=== PATIENT | male | born 1950 | race Caucasian/White ===

== ENCOUNTER → 2021-11-15 13:07 | Outpatient (CLI) | payer MEDICARE, SELFPAY ==
--- NOTE | 2021-11-15 13:07 | CA_ITS ---
APPROVED REPORT EXAM: Comprehensive 2D, Doppler, and color-flow Echocardiogram Dough Cutting Machine Operator: PELON Karimi, RVS Ht: 6 ft 4 in Wt: 175lbs BSA: 2.09 BP: 160/92 mmHg Indications: Aortic stenosis with aortic insufficiency, HTN, dizziness, hypothyroidism Echo Enhancing Agent Comments: Low parasternal windows 2D Dimensions IVSd 1.35 cm LVEF (Visual) 62.40 % PWd 1.25 cm LA Volume 43.50 mL LVDd 4.65 cm LA Volume Index [id number] mL/m2 (M/F) 16-34 LVDs 2.87 cm Aortic Root 4.01 cm Left Atrium 6.17 cm LVOT 2.02 cm (M/F) 1.5-2.5 Ascending Aorta 3.88 cm M-Mode Dimensions Ao Diam 5.36 cm (2.0-3.7) TAPSE 1.70 (<1.7) LV Diastology E Decel Time 240.00 (160-240 msec) E/A Ratio 0.65 MED E' 8.40 (< 7 cm/sec) MED A' 7.30 cm/s E'/MED E' Ratio 8.43 (>14) LAT E' 8.90 (<10 cm/sec) LAT A' 11.30 cm/s E/LAT E' Ratio 7.96 (>14) Aortic Valve LVOT Max 104.00 (70-110 cm/s) LVOT VTI 26.16 cm AoV Peak Fahad. 368.00 (50-130 cm/s) AI PHT 574.00 ms AO Peak GR. 54.10 mmHg AO Mean GR. 35.50 (<5 mmHg) AO VTI 90.34 (18-25 cm) CHRIS (VTI) 0.93 (2.5-4.5 cm2) Mitral Valve MV A Velocity 109.00 (40-130 cm/s) E/A Ratio 0.65 MV Decel. Time 240.00 (160-240 ms) MV Mean Gr. 1.90 (<2mmHg) MV PHT 73.00 ms Pulmonary Valve PV Peak Velocity 94.00 (50-150 cm/s) Tricuspid Valve TR P. Velocity 190.00 cm/s RAP Estimate 10.00 mmHg RVSP 24.40 mmHg Left Ventricle Left atrium is mildly enlarged, left ventricle normal size mild concentric left ventricular hypertrophy, estimated ejection fraction 55% with no regional wall motion abnormality, grade 1 diastolic dysfunction seen without tissue Doppler evidence of raise left atrial pressure. Right Ventricle Right atrium and right ventricle are normal size and contractility. Aortic Valve Aortic valve leaflets are not well visualized, is thickened and calcified with severe restriction in the leaflet mobility is likely a bicuspid aortic valve, the mean gradient across aortic valve is 37 mmHg, valve area is 0.9 cm represents severe aortic stenosis, there is mild aortic insufficiency. Mitral Valve Mitral valve has mitral calcification, there is no mitral stenosis, there is mild mitral regurgitation. Tricuspid Valve Tricuspid valve grossly normal, there is mild tricuspid regurgitation, tricuspid regurgitation jet velocity is inadequate for calculation of the right ventricular systolic pressure. Pulmonic Valve Pulmonic valve is poorly visualized. Great Vessels Aortic root is enlarged measuring 3.9 cm. Inferior vena cava is poorly visualized. Pericardium No significant pericardial effusion noted. Conclusion 1. Mildly enlarged atrium, normal left ventricular size mild concentric left ventricle hypertrophy, estimated ejection fraction 55% with no regional wall motion abnormality, grade 1 diastolic dysfunction seen without tissue Doppler evidence of reduced left atrial pressure. 2. Thickened and calcified likely bicuspid aortic valve with severe aortic stenosis, there is mild aortic insufficiency. 3. Mild mitral and tricuspid regurgitation. 4. No significant pericardial effusion. 5. Inferior vena cava is poorly visualized. Electronically signed by : Anirudh Mccann MD 11/16/2021 14:40:24
--- NOTE | 2021-11-15 13:07 | CA_ITS ---
FINAL REPORT CLINICAL HISTORY: dizziness, Aortic stenosis, HTN FINDINGS: An ultrasound of the carotid arteries was performed. Duplex Doppler evaluation with spectral analysis was performed. The peak systolic velocity of the right common carotid artery is 66 cm/s. The peak systolic velocity of the right internal carotid artery is 90 cm/s and end diastolic velocity 33 cm/s. A [id number] amount of plaque is present. The right external carotid artery is patent. The right vertebral artery is patent with antegrade flow. The peak systolic velocity of the left common carotid artery is 67 cm/s. The peak systolic velocity of the left internal carotid artery is 87 cm/s and end diastolic velocity 31 cm/s. A sjqj-la-[id number] amount of plaque is present. The left external carotid artery is patent. The left vertebral artery is patent with antegrade flow. IMPRESSION: Less than 50% bilateral carotid stenoses. Bilateral patent vertebral arteries with antegrade flow. Reviewed, Interpreted and Dictated by Duane Duran MD Transcribed by Abdon Parker Authenticated and [facility]
== END ==
PROVIDERS: PCP Nurse Practitioner; Visit Provider Nurse Practitioner
DX: I35.0 Nonrheumatic aortic (valve) stenosis (principal); R42 Dizziness and giddiness
CPT/HCPCS: 93306; 93880

== ENCOUNTER → 2022-02-06 14:20 | Outpatient (CLI) | payer MEDICARE, SELFPAY ==
[2022-02-06 19:47] LABS: Anion Gap 15.5 mEq/L (5-15); Blood Urea Nitrogen 16 mg/dl (9-20); Calcium 9.4 mg/dl (8.4-10.2); Carbon Dioxide 27 mmol/L (22.0-30.0); Chloride 100 mmol/L (98-107); Estimated Glomerular Filt Rate 96 ml/min (>60); GFR (African American) 116 ML/MIN (>60); Glucose 87 mg/dl (74-100); Potassium 4.5 mmoL/L (3.5-5.1); Sodium 138 mmol/L (136-145)
[2022-02-06 20:03] LABS: Free T4 (Free Thyroxine) 1.06 ng/dl (0.78-2.19)
[2022-02-06 20:16] LABS: Thyroid Stimulating Hormone 4.44 uIU/mL (0.465-4.68)
== END ==
PROVIDERS: PCP Nurse Practitioner; Visit Provider Nurse Practitioner
DX: E03.9 Hypothyroidism, unspecified (principal); I10 Essential (primary) hypertension
CPT/HCPCS: 80048; 84439; 84443

== ENCOUNTER 2022-05-18 09:00 | Emergency (ER) | payer MEDICARE, SELFPAY ==
[2022-05-18] VITALS (8 sets, daily range): BP systolic 117–141; BP diastolic 60–86; PULSE 70–80; RESP 14–18; TEMP 36.6–36.8; O2SAT 94–98; BMI 21.2
--- NOTE | 2022-05-18 09:15 | CT_ITS ---
PROCEDURE INFORMATION: Exam: CTA Head With Contrast, Arteriography Exam date and time: 05/18/2022 10:13 AM Age: 71 years old Clinical indication: Other: Bilateral neck pain and midline with any motion; Additional info: Spontaneous bilateral neck pain and midline TECHNIQUE: Imaging protocol: Computed tomographic angiography of the head with contrast. Exam focused on the arteries. 3D rendering (Not supervised by radiologist): MIP and/or 3D reconstructed images were created by the technologist. Radiation optimization: All CT scans at this facility use at least one of these dose optimization techniques: automated exposure control; mA and/or kV adjustment per patient size (includes targeted exams where dose is matched to clinical indication); or iterative reconstruction. Contrast material: ISOVUE 370; Contrast volume: 100 ml; Contrast route: INTRAVENOUS (IV); COMPARISON: CT HEAD/BRAIN WO CON 05/18/2022 10:07 AM FINDINGS: Limitations: Timing of the study is late with heavy venous filling confusing the identification of arterial structures. Repeat study with earlier arterial phase timing may be helpful in working out this anatomy. MRI could also be considered to determine if there is an infarct. ANTERIOR CIRCULATION: Right internal carotid artery: Intracranial segment is patent with no significant stenosis. No aneurysm. Right middle cerebral artery: No occlusion or significant stenosis. No aneurysm. Right anterior cerebral artery: No occlusion or significant stenosis. No aneurysm. Left internal carotid artery: Intracranial segment is patent with no significant stenosis. No aneurysm. Left middle cerebral artery: No occlusion or significant stenosis. No aneurysm. Left anterior cerebral artery: No occlusion or significant stenosis. No aneurysm. POSTERIOR CIRCULATION: Right vertebral artery: No occlusion or significant stenosis. No aneurysm. Left vertebral artery: No occlusion or significant stenosis. No aneurysm. Basilar artery: No occlusion or significant stenosis. No aneurysm. Right posterior cerebral artery: There is origin of the right posterior cerebral artery. No P1 segment is identified. Left posterior cerebral artery: There is origin of the left posterior cerebral artery. No P1 segment is detected. Brain: There is hypodensity of the central M2 branches of the right middle cerebral artery distribution which appears to be related to narrowing of the primary M2 branch visualized on coronal image 48 sending anterior and posterior branches that are well seen but difficulty defining the origin of the central branches moving superiorly. There is no OTHER evidence of intracranial large vessel stenosis or occlusion. Cerebral ventricles: No ventriculomegaly. Bones/joints: Unremarkable. No acute fracture. Soft tissues: Unremarkable. IMPRESSION: 1. Timing of the study is late with heavy venous filling confusing the identification of arterial structures. Repeat study with earlier arterial phase timing may be helpful in working out this anatomy. MRI could also be considered to determine if there is an infarct. 2. There is origin of the right posterior cerebral artery. No P1 segment is identified. 3. There is origin of the left posterior cerebral artery. No P1 segment is detected. 4. There is hypodensity of the central M2 branches of the right middle cerebral artery distribution which appears to be related to narrowing of the primary M2 branch visualized on coronal image 48 sending anterior and posterior branches that are well seen but difficulty defining the origin of the central branches gabriela
--- NOTE | 2022-05-18 09:15 | CT_ITS ---
PROCEDURE INFORMATION: Exam: CT Cervical Spine Without Contrast Exam date and time: 05/18/2022 10:10 AM Age: 71 years old Clinical indication: Neck pain; Additional info: Spontaneous bilateral neck pain and midline TECHNIQUE: Imaging protocol: Computed tomography of the cervical spine without contrast. Radiation optimization: All CT scans at this facility use at least one of these dose optimization techniques: automated exposure control; mA and/or kV adjustment per patient size (includes targeted exams where dose is matched to clinical indication); or iterative reconstruction. COMPARISON: CT HEAD/BRAIN WO CON 05/18/2022 10:07 AM FINDINGS: Bones/joints: The spine demonstrates moderate degenerative changes at multiple levels. Facet arthropathy and foraminal compromise are more severe on the left side. There is no evidence of fracture. Lungs: Confluent centrilobular emphysematous changes are present in the lungs. Thyroid: The thyroid appears normal. Vasculature: The vasculature demonstrates diffuse moderate atherosclerotic calcification. Soft tissues: Unremarkable. IMPRESSION: 1. The spine demonstrates moderate degenerative changes at multiple levels. Facet arthropathy and foraminal compromise are more severe on the left side. 2. There is no evidence of fracture. 3. Confluent centrilobular emphysematous changes are present in the lungs.
--- NOTE | 2022-05-18 09:15 | CT_ITS ---
PROCEDURE INFORMATION: Exam: CT Head Without Contrast Exam date and time: 05/18/2022 10:07 AM Age: 71 years old Clinical indication: Pain; Other: Neck; Additional info: Severe neck and basilar skull pain, limited rom TECHNIQUE: Imaging protocol: Computed tomography of the head without contrast. Radiation optimization: All CT scans at this facility use at least one of these dose optimization techniques: automated exposure control; mA and/or kV adjustment per patient size (includes targeted exams where dose is matched to clinical indication); or iterative reconstruction. COMPARISON: US CA CAROTID DUPLEX BI 11/15/2021 1:50 PM FINDINGS: Brain: Normal. No hemorrhage. Unremarkable white matter. No mass effect. Cerebral ventricles: No ventriculomegaly. Paranasal sinuses: There is extensive sinus mucosal thickening with fluid accumulation in the bilateral maxillary sinuses and the right frontal sinus without evidence of destructive features. Mastoid air cells: Visualized mastoid air cells are well aerated. Bones/joints: No fracture is seen or evidence of suspicious soft tissue swelling. Soft tissues: Unremarkable. IMPRESSION: 1. There is extensive sinus mucosal thickening with fluid accumulation in the bilateral maxillary sinuses and the right frontal sinus without evidence of destructive features. 2. No acute intracranial process is identified.
--- NOTE | 2022-05-18 09:19 | HMH.EDGENADL ---
Discharge Plan Disposition Patient Disposition: Xfer Short-Term Hosp Condition: Fair Chief Complaint: Neck Pain/Injury Prescriptions Prescriptions: No Action fluticasone furoate-vilanterol [Breo Ellipta] 200-25 mcg/dose blister with device 1 inh inhalation DAILY Qty: 30 5RF levothyroxine 25 mcg capsule 25 mcg PO DAILY Qty: 30 2RF losartan-hydrochlorothiazide 100-25 mg tablet 1 tab PO DAILY Qty: 30 2RF Referrals Follow up/Referrals: Genevieve Shrestha APRN [Primary Care Provider] - See instructions Activity Restrictions/Add. Instructions Additional Instructions/Restrictions: Please present immediately to [facility] to be admitted with the spine doctors and internal medicine for continued evaluation. Clinical Impressions Clinical Impression: Acute neck pain Instructions Patient Instructions: DI for Neck Pain Discharge ED Provider: Catracho Olson General Adult HPI General Chief complaint: Neck Pain/Injury Stated complaint: No accident , Stiff Neck for a week now Time Seen by Provider: 05/18/22 09:19 History of Present Illness HPI narrative: Patient is a 71-year-old male with past medical history of COPD not on home oxygen, chronic lumbar back pain who presents emergency department for evaluation of neck pain. Onset was subacute, occurring over the last 2 weeks, spontaneous upon awakening. It has gotten progressively worse with limited range of motion in all directions causing him to present here for continued evaluation. Pain is bilateral lateral neck and midline, severe in intensity. Denies headaches, chest pain, abdominal pain, acute rashes or arthralgias, afebrile throughout the course. Patient denies trauma. No gait changes, no urinary or bowel incontinence. No other acute complaints. Related Data Previous Rx's Medication Instructions Recorded fluticasone furoate 200 1 inh inhalation DAILY #30 ea 02/06/22 mcg-vilanterol 25 mcg/dose inhalation powder (Breo Ellipta) levothyroxine 25 mcg capsule 25 mcg PO DAILY #30 caps 02/06/22 losartan 100 1 tab PO DAILY #30 tabs 02/06/22 mg-hydrochlorothiazide 25 mg tablet Allergies Allergy/AdvReac Type Severity Reaction Status Date / Time No Known Allergies Allergy Verified 02/06/22 13:12 [facility] Disclaimer: The information contained in this section may have been updated after the patient was seen, as this information can be updated by other users. Medical History Acquired hypothyroidism Aortic valve stenosis ASCVD (arteriosclerotic cardiovascular disease) COPD (chronic obstructive pulmonary disease) Essential hypertension Hyperlipidemia Polyarthralgia Surgical History History of hernia surgery History of shoulder surgery Social History Smoking Status: Current every day smoker tobacco type: cigarettes alcohol intake: current current occupational status: retired Travel in the last 8 weeks: None ROS Obtained: Yes Systems reviewed as appropriate & no additional complaints except as documented Physical Exam General General appearance: alert and in no apparent distress Head Head exam: atraumatic and normocephalic Eye Eye exam: Present PERRL and EOMI ENT ENT exam: Present mucous membranes moist Neck Neck exam: Absent normal inspection (Patient is looking down throughout exam stating it is the most comfortable position), full ROM (Limited in all directions secondary to pain) or tenderness (No midline tenderness) Chest Chest inspection: Present normal inspection and symmetric chest wall rise Respiratory Respiratory exam: Present normal lung sounds bilaterally; Absent respiratory distress Cardiovascular Cardiovascular exam: Present regular rate and normal rhythm Abdominal Exam Abdominal exam: Present soft; Absent tenderness Extremities Exa
--- NOTE | 2022-05-18 09:38 | ECG_ITS ---
APPROVED REPORT Exam: Resting ECG HR:77 bpm ECG Measurements Heart Rate 77 AXES MA 205 P 76 QRSd 85 QRS 5 QT 374 T 83 QTc [address] DEVIATION AND MODERATE T-WAVE ABNORMALITY, CONSIDER LATERAL ISCHEMIA [-0.1+ mV T-WAVE IN I/aVL/V5/V6] ABNORMAL ECG UNCONFIRMED REPORT Electronically signed by : Braden Smith MD 05/18/2022 18:46:48
--- NOTE | 2022-05-18 09:43 | PC.NURSE ---
Left AC 18ga PIVL placed, flushed, saline locked 0930
[2022-05-18 09:45] LABS: Basophils # 0.1 K/mm3 (0-0.2); Basophils % 0.6 % (0.1-2.0); Eosinophils # 0.1 K/mm3 (0.0-0.4); Eosinophils % 0.9 % (0.1-12.0); Hematocrit 46.3 % (42.0-52.0); Hemoglobin 15.8 g/dL (14.1-18.0); Lymphocytes # 0.9 K/mm3 (0.7-4.5); Mean Corpuscular HGB Conc 34.3 g/dL (31.8-35.4); Mean Corpuscular Hemoglobin 30.4 pg (27.0-31.2); Mean Corpuscular Volume 88.8 fl (80-94); Mean Platelet Volume 8.9 fl (7.4-10.4); Monocytes # 0.5 K/mm3 (0.1-1.0); Monocytes % 4.2 % (1.7-9.3); Neutrophils # 10.2 K/mm3 (1.8-7.8); Neutrophils % 86.3 % (37.0-80.0); Platelet Count 322 K/mm3 (142-424); Red Blood Count 5.21 M/mm3 (4.60-6.20); Red Cell Distribution Width 12.3 % (11.5-17.5); White Blood Count 11.8 K/mm3 (4.8-10.8)
[2022-05-18 09:49] LABS: Chloride 98 mmol/L (98-107); Sodium 137 mmol/L (136-145)
[2022-05-18 09:50] LABS: MANUAL DIFFERENTIAL MANUAL DIFFERENTIAL (MANUAL DIFF)
[2022-05-18 09:52] LABS: Alanine Aminotransferase 27 U/L (12-78); Aspartate Amino Transferase 27 U/L (17-59); Bilirubin,Total 0.9 mg/dl (0.2-1.3); Blood Urea Nitrogen 16 mg/dl (9-20); Carbon Dioxide 29 mmol/L (22.0-30.0); Creatinine Clearance Estimated 76 mL/min (50-200); Estimated Glomerular Filt Rate 84 ml/min (>60); GFR (African American) 101 ML/MIN (>60)
[2022-05-18 09:53] LABS: Albumin Level 4.6 g/dl (3.5-5.0); Albumin/Globulin Ratio 1.2 (1.1-1.8); Alkaline Phosphatase 92 U/L (38-126); Calcium 9.1 mg/dl (8.4-10.2); Globulin 3.8 g/dL (1.3-3.2); Glucose 117 mg/dl (74-100); Total Protein,Serum 8.4 g/dl (6.3-8.2)
[2022-05-18 09:58] LABS: C-Reactive Protein 58.7 mg/L (0-4)
[2022-05-18 10:02] LABS: Lymphocytes % 13 % (10-50); Monocytes % 4 % (2-9); Neutrophils % 83 % (42-76); Platelet Estimate Normal; Total Cells Counted 100
[2022-05-18 10:03] LABS: RBC Morphology Normal
--- NOTE | 2022-05-18 12:15 | PC.NURSE ---
DR. AMBROSIO AT BEDSIDE
--- NOTE | 2022-05-18 12:30 | PC.NURSE ---
[facility] called for spine MD
--- NOTE | 2022-05-18 13:46 | PC.NURSE ---
[facility] called 2 times advising images had not been zoomed, rad advised and they advised they would send again.
--- NOTE | 2022-05-18 13:48 | PC.NURSE ---
[facility] called for follow up , spine MD is in surgery it will be an hour, dr plata to call back for possible transfer.
--- NOTE | 2022-05-18 14:09 | PC.NURSE ---
Paged [facility] on-call provider, Dr. Néstor Borja for call-back to discuss Pt Miguel A Lindsay
--- NOTE | 2022-05-18 14:24 | PC.NURSE ---
[facility] called for transfer
--- NOTE | 2022-05-18 14:48 | PC.NURSE ---
placed call to [facility], they are not accepting any transfers at this time
--- NOTE | 2022-05-18 14:51 | PC.NURSE ---
dr carroll speaking with Dr Snell at [facility]
== END 2022-05-18 16:15 | disposition short-term general hospital (02) ==
PROVIDERS: Emergency Provider Emergency Medicine; PCP Nurse Practitioner
DX: M54.2 Cervicalgia (principal); J44.9 Chronic obstructive pulmonary disease, unspecified; M54.50 Low back pain, unspecified; G89.29 Other chronic pain; E03.9 Hypothyroidism, unspecified; I10 Essential (primary) hypertension; I25.10 Atherosclerotic heart disease of native coronary artery without angina pectoris; E78.5 Hyperlipidemia, unspecified; I35.0 Nonrheumatic aortic (valve) stenosis; F17.210 Nicotine dependence, cigarettes, uncomplicated
CPT/HCPCS: 70450; 70496; 70498; 72125; 80053; 85007; 85025; 86140; 93005; 96374; 96375; 96376; 99285; J2405; Q9967

== ENCOUNTER → 2022-06-03 09:25 | Outpatient (CLI) | payer MEDICARE, SELFPAY ==
[2022-06-03 19:23] LABS: Alanine Aminotransferase 29 U/L (12-78); Albumin Level 3.8 g/dl (3.5-5.0); Albumin/Globulin Ratio 1.5 (1.1-1.8); Alkaline Phosphatase 84 U/L (38-126); Anion Gap 11.6 mEq/L (5-15); Aspartate Amino Transferase 24 U/L (17-59); Bilirubin,Total 0.5 mg/dl (0.2-1.3); Blood Urea Nitrogen 18 mg/dl (9-20); Calcium 8.8 mg/dl (8.4-10.2); Carbon Dioxide 26 mmol/L (22.0-30.0); Chloride 100 mmol/L (98-107); Chol/HDL Ratio 3.5 (1-3.5); Cholesterol 150 mg/dl (140-200); Estimated Glomerular Filt Rate 96 ml/min (>60); GFR (African American) 116 ML/MIN (>60); Globulin 2.5 g/dL (1.3-3.2); Glucose 121 mg/dl (74-100); HDL Cholesterol 43 mg/dl (40-60); Potassium 3.6 mmoL/L (3.5-5.1); Sodium 134 mmol/L (136-145); Total Protein,Serum 6.3 g/dl (6.3-8.2); Triglycerides 302 mg/dl (30-150); VLDL Cholesterol 60 mg/dL (0-40)
[2022-06-03 19:35] LABS: Direct LDL Cholesterol 69.96 mg/dL (100-129)
[2022-06-03 19:40] LABS: 25-OH Vitamin D, Total 35.7 ng/mL (30-100)
[2022-06-03 19:55] LABS: Thyroid Stimulating Hormone 2.77 uIU/mL (0.465-4.68)
== END ==
PROVIDERS: PCP Nurse Practitioner; Visit Provider Nurse Practitioner
DX: E03.9 Hypothyroidism, unspecified (principal); E55.9 Vitamin D deficiency, unspecified; E78.5 Hyperlipidemia, unspecified; I10 Essential (primary) hypertension
CPT/HCPCS: 80053; 80061; 82306; 84439; 84443

== ENCOUNTER → 2023-04-14 19:34 | Outpatient (CLI) | payer MEDICARE, SELFPAY ==
[2023-04-14 20:37] LABS: Basophils # 0.1 K/mm3 (0-0.2); Basophils % 0.6 % (0.1-2.0); Eosinophils # 0.1 K/mm3 (0.0-0.4); Eosinophils % 1.4 % (0.1-12.0); Hematocrit 52.2 % (42.0-52.0); Hemoglobin 17.7 g/dL (14.1-18.0); Lymphocytes # 1.2 K/mm3 (0.7-4.5); Lymphocytes % 14.8 % (10-50); Mean Corpuscular HGB Conc 33.9 g/dL (31.8-35.4); Mean Corpuscular Hemoglobin 31.3 pg (27.0-31.2); Mean Corpuscular Volume 92.5 fl (80-94); Mean Platelet Volume 10.7 fl (7.4-10.4); Monocytes # 0.4 K/mm3 (0.1-1.0); Monocytes % 5.3 % (1.7-9.3); Neutrophils # 6.2 K/mm3 (1.8-7.8); Neutrophils % 77.8 % (37.0-80.0); Platelet Count 238 K/mm3 (142-424); Red Blood Count 5.65 M/mm3 (4.60-6.20); Red Cell Distribution Width 12.8 % (11.5-17.5)
[2023-04-14 21:10] LABS: Alanine Aminotransferase 26 U/L (12-78); Albumin Level 4.6 g/dl (3.5-5.0); Albumin/Globulin Ratio 1.4 (1.1-1.8); Alkaline Phosphatase 97 U/L (38-126); Anion Gap 12.3 mEq/L (5-15); Aspartate Amino Transferase 43 U/L (17-59); Bilirubin,Total 0.7 mg/dl (0.2-1.3); Blood Urea Nitrogen 14 mg/dl (9-20); Calcium 9.1 mg/dl (8.4-10.2); Carbon Dioxide 26 mmol/L (22.0-30.0); Chloride 102 mmol/L (98-107); Chol/HDL Ratio 4.7 (1-3.5); Cholesterol 185 mg/dl (140-200); Estimated Glomerular Filt Rate 96 ml/min (>60); GFR (African American) 116 ML/MIN (>60); Globulin 3.3 g/dL (1.3-3.2); Glucose 98 mg/dl (74-100); HDL Cholesterol 39 mg/dl (40-60); Potassium 4.3 mmoL/L (3.5-5.1); Sodium 136 mmol/L (136-145); Total Protein,Serum 7.9 g/dl (6.3-8.2); Triglycerides 221 mg/dl (30-150); VLDL Cholesterol 44 mg/dL (0-40)
[2023-04-14 21:21] LABS: Direct LDL Cholesterol 110.35 mg/dL (100-129)
[2023-04-14 21:28] LABS: Free T4 (Free Thyroxine) 1.29 ng/dl (0.78-2.19)
[2023-04-14 21:29] LABS: 25-OH Vitamin D, Total 61.8 ng/mL (30-100)
[2023-04-14 21:41] LABS: Thyroid Stimulating Hormone 3.69 uIU/mL (0.465-4.68)
[2023-04-14 22:00] LABS: Creatinine,Urine Random 107 mg/dL (Not Estab.); Vitamin B12 985 pg/mL (239-931)
[2023-04-14 22:03] LABS: Microalbumin/Creatinine Ratio 44.2
== END ==
PROVIDERS: PCP Nurse Practitioner; Visit Provider Nurse Practitioner
DX: R79.89 Other specified abnormal findings of blood chemistry; I35.0 Nonrheumatic aortic (valve) stenosis; I25.10 Atherosclerotic heart disease of native coronary artery without angina pectoris; E03.9 Hypothyroidism, unspecified; E78.5 Hyperlipidemia, unspecified; I10 Essential (primary) hypertension; J44.9 Chronic obstructive pulmonary disease, unspecified; Z86.39 Personal history of other endocrine, nutritional and metabolic disease
CPT/HCPCS: 80053; 80061; 82043; 82306; 82570; 82607; 84439; 84443; 85025

== ENCOUNTER → 2023-04-14 19:37 | Outpatient (CLI) | payer MEDICARE, SELFPAY | PROVIDERS: PCP Nurse Practitioner; Visit Provider Nurse Practitioner | DX: I35.0 Nonrheumatic aortic (valve) stenosis (principal) ==

== ENCOUNTER → 2023-04-23 10:26 | Outpatient (CLI) | payer MEDICARE, SELFPAY ==
--- NOTE | 2023-04-23 10:26 | CA_ITS ---
APPROVED REPORT EXAM: Comprehensive 2D, Doppler, and color-flow Echocardiogram Insurance Agent: Rayna Kennedy RDCS Ht: 6 ft 4 in Wt: 178lbs BSA: 2.11 BP: 145/80 mmHg Indications: CP,,ASCVD 2D Dimensions Left Atrium 5.38 cm M: 3.0 - 4.0 LVOT 1.43 cm (M/F) 1.5-2.5 M-Mode Dimensions RVDd 3.68 cm (0.9-2.6) LVDd 4.16 cm (3.5-5.7) Ao Diam 2.80 cm (2.0-3.7) LVDs 3.10 cm (3.5-5.7) IVSd 1.23 cm (0.6-1.1) PWd 1.07 cm (0.6-1.1) EF (Teich) 50.70% FS 25.50% EDV (Teich) 76.80 mL ESV (Teich) 37.90 mL LV Diastology E Decel Time 192 (160-240 msec) E/A Ratio 0.5 MED E' 7.0 (>= 7 cm/sec) E'/MED E' Ratio 8.70 (<= 14) LAT E' 9.0 (>= 10 cm/sec) E/LAT E' Ratio 6.77 (<= 14) Aortic Valve LVOT Max 137.0 (70-110 cm/s) CHRIS Index 0.25 cm2/m2 LVOT VTI 22.45 cm AoV Peak Fahad. 400.0 (50-130 cm/s) AO Mean GR. 31.30 (<5 mmHg) AO VTI 69.1 (18-25 cm) CHRIS (VTI) 0.52 (2.5-4.5 cm2) Mitral Valve MV E Max Fahad. 61.0 (40-130 cm/s) MV A Velocity 132.0 (40-130 cm/s) E/A Ratio 0.46 MV Decel. Time 192 (160-240 ms) Left Ventricle The left ventricle is normal size. The left ventricular systolic function is normal. The left ventricular ejection fraction is within the normal range. There is increased LV wall thickness. There is normal LV segmental wall motion. The left ventricular diastolic function is normal. LVEF is 65-70%. Right Ventricle The right ventricle is normal size. The right ventricular systolic function is normal. There is increased RV wall thickness. Atria The left atrium size is normal. The right atrium size is normal. There is no Doppler evidence of interatrial shunt. Aortic Valve The aortic valve is moderately thickened. Severe valvular aortic stenosis. Peak velocity 4.0 m/s. Mean AV gradients 32 mmHg. Max AV gradient 65 mmHg. CHRIS by continuity equation is 0.6 cm???. Mild aortic regurgitation. Mitral Valve The mitral valve leaflets are mildly thickened. No evidence of mitral valve stenosis. Trace mitral regurgitation. Tricuspid Valve The tricuspid valve leaflets are thin and pliable. Trace tricuspid regurgitation. There is insufficient TR jet to estimate RVSP. Pulmonic Valve The pulmonic valve is not well-visualized. Great Vessels The aortic root is not well-visualized. The IVC is not well-visualized. Pericardium There is no pericardial effusion. Other Information Study Quality: Technically Difficult Conclusion Technically difficult study due to poor acoustic windows. Normal biventricular systolic function. Severe valvular aortic stenosis. Peak velocity 4.0 m/s. Mean AV gradients 32 mmHg. Max AV gradient 65 mmHg. CHRIS by continuity equation is 0.6 cm???. Mild AI. In the setting of symptomatic, severe aortic stenosis, referral to TAVR evaluation is recommended. Electronically signed by : Sarahy Schumacher MD 04/28/2023 19:46:54
== END ==
LOC: RT 10:26
PROVIDERS: PCP Nurse Practitioner; Visit Provider Physician Assistant
DX: I25.10 Atherosclerotic heart disease of native coronary artery without angina pectoris (principal); I35.0 Nonrheumatic aortic (valve) stenosis; R07.9 Chest pain, unspecified; R42 Dizziness and giddiness; R94.31 Abnormal electrocardiogram [ECG] [EKG]; J44.9 Chronic obstructive pulmonary disease, unspecified; E78.5 Hyperlipidemia, unspecified; Z72.0 Tobacco use
CPT/HCPCS: 93306

== ENCOUNTER 2023-11-10 10:21 | Outpatient (CLI) | payer MEDICARE, SELFPAY ==
[2023-11-10 19:08] LABS: Free T4 (Free Thyroxine) 1.27 ng/dl (0.78-2.19)
[2023-11-10 19:31] LABS: Alanine Aminotransferase 22 U/L (12-78); Albumin Level 4.4 g/dl (3.5-5.0); Albumin/Globulin Ratio 1.4 (1.1-1.8); Alkaline Phosphatase 95 U/L (38-126); Anion Gap 11.4 mEq/L (5-15); Aspartate Amino Transferase 27 U/L (17-59); Bilirubin,Total 0.7 mg/dl (0.2-1.3); Blood Urea Nitrogen 15 mg/dl (9-20); Calcium 9.7 mg/dl (8.4-10.2); Carbon Dioxide 26 mmol/L (22.0-30.0); Chloride 105 mmol/L (98-107); Estimated Glomerular Filt Rate 96 ml/min (>60); GFR (African American) 116 ML/MIN (>60); Globulin 3.1 g/dL (1.3-3.2); Glucose 96 mg/dl (74-100); Potassium 4.4 mmoL/L (3.5-5.1); Sodium 138 mmol/L (136-145); Total Protein,Serum 7.5 g/dl (6.3-8.2)
[2023-11-10 19:57] LABS: Thyroid Stimulating Hormone 4.53 uIU/mL (0.465-4.68)
== END 2023-11-10 23:59 | disposition home or self-care (01) ==
LOC: LAB.DROPOF 11-11 10:21
PROVIDERS: PCP Nurse Practitioner; Visit Provider Nurse Practitioner
DX: E03.9 Hypothyroidism, unspecified (principal); I10 Essential (primary) hypertension; R42 Dizziness and giddiness
CPT/HCPCS: 80053; 84439; 84443

== ENCOUNTER 2024-06-02 09:10 | Outpatient (CLI) | payer MEDICARE, SELFPAY ==
[2024-06-02 18:02] LABS: Basophils # 0.1 K/mm3 (0-0.2); Basophils % 1.1 % (0.1-2.0); Eosinophils # 0.1 K/mm3 (0.0-0.4); Eosinophils % 1.2 % (0.1-12.0); Hematocrit 47.8 % (42.0-52.0); Hemoglobin 15.9 g/dL (14.1-18.0); Lymphocytes # 1.3 K/mm3 (0.7-4.5); Lymphocytes % 14.3 % (10-50); Mean Corpuscular HGB Conc 33.3 g/dL (31.8-35.4); Mean Corpuscular Hemoglobin 29.2 pg (27.0-31.2); Mean Corpuscular Volume 87.9 fl (80-94); Monocytes # 0.5 K/mm3 (0.1-1.0); Monocytes % 5.3 % (1.7-9.3); Neutrophils % 77.8 % (37.0-80.0); Platelet Count 283 K/mm3 (142-424); Red Blood Count 5.44 M/mm3 (4.60-6.20); Red Cell Distribution Width 12.9 % (11.5-17.5)
[2024-06-02 18:19] LABS: Alanine Aminotransferase 25 U/L (12-78); Albumin Level 4.6 g/dl (3.5-5.0); Albumin/Globulin Ratio 1.6 (1.1-1.8); Anion Gap 13.6 mEq/L (5-15); Aspartate Amino Transferase 31 U/L (17-59); Bilirubin,Total 0.4 mg/dl (0.2-1.3); Blood Urea Nitrogen 23 mg/dl (9-20); Calcium 9.8 mg/dl (8.4-10.2); Carbon Dioxide 26 mmol/L (22.0-30.0); Chloride 105 mmol/L (98-107); Cholesterol 192 mg/dl (140-200); Estimated Glomerular Filt Rate 83 ml/min (>60); GFR (African American) 101 ML/MIN (>60); Globulin 2.8 g/dL (1.3-3.2); Glucose 96 mg/dl (74-100); HDL Cholesterol 35 mg/dl (40-60); Potassium 4.6 mmoL/L (3.5-5.1); Sodium 140 mmol/L (136-145); Total Protein,Serum 7.4 g/dl (6.3-8.2); Triglycerides 190 mg/dl (30-150); VLDL Cholesterol 38 mg/dL (0-40)
[2024-06-02 18:20] LABS: Alkaline Phosphatase 93 U/L (38-126); Chol/HDL Ratio 5.5 (1-3.5)
[2024-06-02 18:22] LABS: Microalbumin/Creatinine Ratio 41.1
[2024-06-02 18:28] LABS: Creatinine,Urine Random 164 mg/dL (Not Estab.)
[2024-06-02 18:30] LABS: C-Reactive Protein 3.9 mg/L (0-4); Direct LDL Cholesterol 130.83 mg/dL (100-129)
[2024-06-02 18:37] LABS: Hemoglobin A1C 5.5 % (4.0-6.0)
[2024-06-02 18:43] LABS: Erythrocyte Sedimentation Rate 9 mm/hr (0-20)
[2024-06-02 18:44] LABS: 25-OH Vitamin D, Total 49.2 ng/mL (30-100)
[2024-06-02 18:53] LABS: Prostate Specific Ag Screen 3.7 ng/ml (0.0-4.0); Thyroid Stimulating Hormone 3.78 uIU/mL (0.465-4.68)
[2024-06-02 19:01] LABS: Free T4 (Free Thyroxine) 1.34 ng/dl (0.78-2.19)
[2024-06-02 19:12] LABS: Vitamin B12 953 pg/mL (239-931)
[2024-06-04 09:10] LABS: Testosterone,Total 511 ng/dL (264-916)
== END 2024-06-02 23:59 | disposition home or self-care (01) ==
LOC: LAB.DROPOF 06-03 09:10
PROVIDERS: PCP Nurse Practitioner; Visit Provider Nurse Practitioner
DX: I10 Essential (primary) hypertension (principal); E78.5 Hyperlipidemia, unspecified; E03.9 Hypothyroidism, unspecified; I25.10 Atherosclerotic heart disease of native coronary artery without angina pectoris; J44.9 Chronic obstructive pulmonary disease, unspecified; E55.9 Vitamin D deficiency, unspecified; R53.83 Other fatigue; Z12.5 Encounter for screening for malignant neoplasm of prostate; Z13.1 Encounter for screening for diabetes mellitus; R79.89 Other specified abnormal findings of blood chemistry; Z79.899 Other long term (current) drug therapy
CPT/HCPCS: 80053; 80061; 82043; 82306; 82570; 82607; 83036; 84403; 84439; 84443; 85025; 85651; 86140; G0103

== ENCOUNTER → 2024-07-29 08:58 | Outpatient (CLI) | payer MEDICARE, SELFPAY | LOC: SL 08:58 | PROVIDERS: PCP Nurse Practitioner; Visit Provider Nurse Practitioner | DX: G47.30 Sleep apnea, unspecified (principal); R06.83 Snoring; R53.83 Other fatigue; R40.0 Somnolence; G47.36 Sleep related hypoventilation in conditions classified elsewhere | CPT/HCPCS: G0399 ==

== ENCOUNTER 2025-02-24 12:00 | Outpatient (CLI) | payer MEDICARE, SELFPAY ==
[2025-02-24 15:36] LABS: Hematocrit 46.6 % (42.0-52.0); Hemoglobin 15.0 g/dL (14.1-18.0); Immature Granulocytes % 0.4 %; Mean Corpuscular HGB Conc 32.2 g/dL (31.8-35.4); Mean Corpuscular Hemoglobin 29.0 pg (27.0-31.2); Mean Corpuscular Volume 90.0 fl (80-94); Nucleated Red Blood Cells % 0 %; Platelet Count 269 K/mm3 (142-424); Red Blood Count 5.18 M/mm3 (4.60-6.20); Red Cell Distribution Width-SD 40.9 fL; White Blood Count 10.1 K/mm3 (4.8-10.8)
[2025-02-24 18:34] LABS: Albumin Level 4.2 g/dl (3.5-5.0); Chloride 100 mmol/L (98-107)
[2025-02-24 18:35] LABS: Potassium 4.1 mmoL/L (3.5-5.1); Sodium 136 mmol/L (136-145)
[2025-02-24 18:37] LABS: Alanine Aminotransferase 22 U/L (12-78); Anion Gap 12.1 mEq/L (5-15); Aspartate Amino Transferase 26 U/L (17-59); Blood Urea Nitrogen 23 mg/dl (9-20); Carbon Dioxide 28 mmol/L (22.0-30.0); Creatinine,Serum 0.90 mg/dl (0.66-1.25); Estimated Glomerular Filt Rate 83 ml/min (>60); GFR (African American) 100 ML/MIN (>60)
[2025-02-24 18:38] LABS: Albumin/Globulin Ratio 1.3 (1.1-1.8); Alkaline Phosphatase 87 U/L (38-126); Bilirubin,Total 0.4 mg/dl (0.2-1.3); Calcium 9.0 mg/dl (8.4-10.2); Cholesterol 198 mg/dl (140-200); Globulin 3.2 g/dL (1.3-3.2); Glucose 96 mg/dl (74-100); HDL Cholesterol 33 mg/dl (40-60); Total Protein,Serum 7.4 g/dl (6.3-8.2); Triglycerides 290 mg/dl (30-150)
[2025-02-24 19:13] LABS: Thyroid Stimulating Hormone 4.69 uIU/mL (0.465-4.68)
--- OUTSIDE RECORDS SUMMARY | 2025-02-25 11:25 | XMS_ITS | Clinical Summary ---
Author Organization [facility] ([place], [place], [place], [place]) Address [address] [place] [address] Care Team Providers Care Lead Sharepoint Developer Name Role Phone Unavailable Primary Care Provider Unavailabl e Allergies No known active allergies Medications losartan-hydroC HLOROthiazide (HYZAAR) 100-25 mg per tablet Take 1 tablet by mouth daily. 04/30/2022 Active levothyroxine (SYNTHROID, LEVOTHROID) 25 MCG tablet Take 25 mcg by mouth Every morning on an empty stomach . 04/30/2022 Active albuterol HFA (VENTOLIN HFA) 90 mcg/actuation inhaler Inhale 2 puffs by mouth via inhaler every 6 (six) hours as needed for Wheezing . Active fluticasone furoate-vilante roL (Breo Ellipta) 200-25 mcg/dose DsDv Inhale 1 puff by mouth via inhaler daily. Active Active Problems Problem Noted Date Diagnosed Date Pain 05/18/2022 Neck pain 05/18/2022 Social History Tobacco Use Types Packs/Day Years Used Date Smoking Tobacco: Every Day Cigarettes 1 50 Alcohol Use Standard Drinks/Week Comments Not Asked 2 (1 standard drink = 0.6 oz pur e alcohol) PRAPARE - Transportation Answer Date Re corded In the past 12 months, has l ack of transportation kept you from medical appointments or from getting medications? No 05/19/2022 Lack of Transportation (Non-Medical) Not on file 05/19/2022 Food Insecurity Answer Date Recorded Food run out past 12 months Not on file 05/06 Food did not last past 12 months Not on file 05/24/2023 Employment Answer Date Recorded Help finding and keeping a job Not on file 0 05/24/2023 Family and Community Support Answer Yaya e Recorded Help with Day to Day Activities Not on file 05/24/2023 Feeling Lonely or Isolated Not on file 05/24 Educational Attainment Answer Date Serafin rded Speak language other than [place] at home Not on file 05/24/2023 Want help with school or training Not on file 05/24/2023 Substance Use Answer Date Recorded Used prescription meds for non-medical reasons N ot on file 05/24/2023 Used illegal drugs past 12 months Not on file 05/24/2023 Sex and Gender Information Value Date Recorded Sex Assigned at Not on file Legal Sex Male 1:34 PM ALIGNER Gender Identity Not on file Sexual Orientation Not on file Last Filed Vital Signs Vital Sign Reading Time Taken Comments Blood Pressure 126/78 05/20/2022 6:15 AM EST Pulse 77 05/20/2022 6:15 AM EST Temperature 36.4 C (97.5 F) 05/20/2022 6:15 AM EST Respiratory Rate 16 05/20/2022 6:15 AM EST Oxygen Saturation 96% 05/20/2022 10:28 AM EST Inhaled Oxygen Concentration - - Weight 69.9 kg (154 lb) 05/19/2022 6:25 AM EST Height 190.5 cm (6' 3 ) 05/19/2022 6:25 AM EST Body Mass Index 19.25 05/19/2022 6:25 AM EST Plan of Treatment Health Maintenance Due Date Last Done Comments CT Colonography 1952 Colonoscopy 1952 Colorectal Cancer Screening 1952 FOBT/FIT 1952 Fit-DNA (Cologuard) 1952 Sigmoidoscopy 1952 Depression Screening (12+) 1964 Tobacco Cessation Counseling and Screening (12+) 12/20 Hepatitis C Screening 1970 DTAP/TDAP/TD VACCINES (1 - Tdap) 12/21/1971 Pneumococcal 50+ years (1 of 2 - PCV) 12/21/1971 Shingles Vaccine (Zoster) (1 of 2) 2002 Falls Risk Screening 05/05/2024 COVID-19 VACCINE (1 - season) 2025 Influenza Vaccine (#1) 2025 07/30/2021 Respiratory Syncytial Virus (RSV) Adult or (1 - 1-dose 75+ series) 12/21/2027 Insurance [employer] CHOICE PPO Advance Directives For more information, please contact: [phone] * Full Code (Latest Code Status on File) Date Activated Date Inactivated Comments 05/18/2022 5:46 PM 05/20/2022 6:41 PM
--- OUTSIDE RECORDS SUMMARY | 2025-02-25 11:25 | XMS_ITS | Clinical Summary ---
Author Organization [facility] Address [address] [place] [address] Phone Care Team Providers Care Diamond Cleaver Name Role Phone Kya Wallace Primary Care Provider [phone] Allergies No known active allergies Medications aspirin (ASPIRIN) 81 mg Oral Tablet, Chewable Take 1 Tab by mouth daily. 30 Tab 11 7 Active levothyroxine (SYNTHROID) 25 mcg Oral TabletIndicatio ns:Ischemic chest pain,Essential hypertension,Bl urred vision Take 25 mcg by mouth daily. 2 7 Active amLODIPine (NORVASC) 10 mg Oral Tablet Take 1 Tab by mouth daily. 30 Tab 6 7 Active atorvastatin (LIPITOR) 20 mg Oral Tablet Take 1 Tab by mouth nightly. 30 Tab 11 7 Active Additional Information Patient not taking.Reason: Therapy Completed, Reported on 11/18/2023 meloxicam (MOBIC) 7.5 mg Oral Tablet Take 1 Tablet by mouth daily (with breakfast). 30 Tablet 4 Active Active Problems Problem Noted Date Diagnosed Date Nicotine dependence, cigarettes, uncomplicated 0 11/24/2023 Nontraumatic tear of left rotator cuff Glenohumeral arthritis 09/30/2023 Biceps tendinitis of left upper extremity 2023 Neck pain 05/29/2022 Angina at rest 07/19/2016 SOB (shortness of breath) 07/19/2016 Smoker 07/19/2016 Ischemic chest pain 06/13/2016 Essential hypertension 06/13/2016 Surgical History Surgery Date Site/Laterality Comments HERNIA REPAIR ORTHOPEDIC SURGERY roatator cuff-both sides ORTHOPEDIC SURGERY Right knee Medical History Medical History Date Comments [place] (hard of hearing) Arthritis Hypertension Social History Tobacco Use Types Packs/Day Years Used Date Smoking Tobacco: Every Day Cigarettes 1.3 57.7 Started: 06/05/1967 Smokeless Tobacco: Never Tobacco Cessation:Ready to Q uit: Not Asked; Counseling Given: Not Answered Alcohol Use Standard Drinks/Week Comments Yes 2 (1 standard drink = 0.6 oz pur e alcohol) several times a week Sex and Gender Information Value Date Recorded Sex Assigned at Not on file Legal Sex Male 8:13 PM EDT Gender Identity Not on file Sexual Orientation Not on file Last Filed Vital Signs Vital Sign Reading Time Taken Comments Blood Pressure 148/90 07/19/2016 2:54 PM EDT Pulse 86 07/19/2016 2:54 PM EDT Temperature 36.7 C (98.1 F) 06/13/2016 3:53 PM EST Respiratory Rate 18 06/13/2016 3:53 PM EST Oxygen Saturation 94% 07/19/2016 2:54 PM EDT Inhaled Oxygen Concentration - - Weight 79.4 kg (175 lb) 11/18/2023 3:39 PM EDT Height 191.8 cm (6' 3.5 ) 11/18/2023 3:39 PM EDT Body Mass Index 21.58 11/18/2023 3:39 PM EDT Plan of Treatment Health Maintenance Due Date Last Done Comments Wellness Exam Medicare 12/21/1953 Hepatitis C Screening 1970 DTaP/TDaP/Td (1 - Tdap) 12/21/1971 Pneumococcal Vaccine 50+ (1 of 2 - PCV) 12/21/1971 Cologuard 1997 Colon Cancer Screening 1997 Colonoscopy 1997 FIT 1997 Sigmoidoscopy 1997 Virtual Colonography 1997 Low Dose Lung Cancer Screening 2002 Zoster (1 of 2) 2002 AAA Screening 2017 COVID-19 Vaccine (1 - 2024-2 6 season) 2025 Influenza Vaccine (#1) 2025 07/30/2021 Hepatitis B Vaccine Aged Out No longe r eligible based on patient's age to complete this topic Meningococcal B Vaccine Aged Out No l onger eligible based on patient's age to complete this topic Insurance HU[employer]NA MEDICARE PPO MR HUMANA MEDICARE PPO MR [id number] [id number] Care Teams Diamond Cleaver Relationship Specialty Start Date End Date Kya Wallace [address] [facility] [address] [facility] [address] PCP - General Family Medicine 01/12/14
--- OUTSIDE RECORDS SUMMARY | 2025-02-25 11:25 | XMS_ITS | Clinical Summary ---
Author Organization [facility] Address [address] [place] [address] Care Team Providers Care Road Grader Name Role Phone Genevieve Shrestha APRN Primary Care Provider [phone] Allergies No known active allergies Medications albuterol 108 (90 Base) MCG/ACT inhaler Inhale 2 puffs 4 (four) times a day. Active aspirin 325 MG tablet Take 1 tablet (325 mg) by mouth 1 (one) time each day. Active Fluticasone Furoate-Vilante rol (Breo Ellipta) 200-25 MCG/ACT aerosol powder Inhale 1 puff 1 (one) time each day. Active Misc Natural Products (Osteo Bi-Flex Triple Strength) tablet Take 1 tablet by mouth 2 (two) times a day. Active losartan-hydroC HLOROthiazide (Hyzaar) 100-25 MG tablet Take 1 tablet by mouth 1 (one) time each day. Active fish oil ([place]-3) 500 MG capsule Take 1 capsule (500 mg) by mouth 1 (one) time each day. Active amLODIPine (Norvasc) 2.5 MG tablet 1 tablet (2.5 mg). 05/01/2023 Active levothyroxine (Synthroid, Levoxyl) 25 MCG tablet .COMPLEX 04/21/2023 Active Active Problems Patient Care Coordination No te Formatting of this note migh t be different from the original. Genevieve Problem Noted Date Diagnosed Date Acquired hypothyroidism 11/20/2023 Degenerative disc disease, cervical 11/20/2023 Dizziness 11/20/2023 Cervical paraspinal muscle spasm 11/20/2023 Aortic stenosis 05/27/2023 Murmur, heart 05/27/2023 ASCVD (arteriosclerotic cardiovascular disease) 05/27/2023 COPD (chronic obstructive pulmonary disease) H/O degenerative disc disease 05/27/2023 Diastolic dysfunction 05/27/2023 Essential hypertension 05/27/2023 HLD (hyperlipidemia) 05/27/2023 Polyarthralgia 05/27/2023 Vitamin D deficiency 05/27/2023 Neck pain 05/18/2022 Smoker 07/19/2016 SOB (shortness of breath) 07/19/2016 Resolved Problems Problem Noted Date Diagnosed Date Resolved Date Electrocardiogram abnormal 11/20/2023 0 01/23/2025 Chest pain 05/27/2023 01/23/2025 Pain 05/18/2022 01/23/2025 Immunizations Immunization Administration Dates Next Due Influenza, high-dose, quadrivalent 07/30/2021 Social History Tobacco Use Types Packs/Day Years Used Date Smoking Tobacco: Every Day Cigarettes Smokeless Tobacco: Never Tobacco Cessation:Ready to Q uit: No; Counseling Given: No Alcohol Use Standard Drinks/Week Comments Yes 0 (1 standard drink = 0.6 oz pur e alcohol) occas PHQ-2 Answer Date Recorded Patient Health Questionnaire-2 Score 0 11/28/2023 Sex and Gender Information Value Date Recorded Sex Assigned at Not on file Legal Sex Male 12:28 PM EST Gender Identity Not on file Sexual Orientation Not on file Last Filed Vital Signs Vital Sign Reading Time Taken Comments Blood Pressure 134/79 11/28/2023 10:48 AM EDT Pulse 74 11/28/2023 10:48 AM EDT Temperature - - Respiratory Rate - - Oxygen Saturation 93% 11/28/2023 10: 48 AM EDT Inhaled Oxygen Concentration - - Weight 79.7 kg (175 lb 11.3 oz) 024 10:48 AM EDT Height 191.8 cm (6' 3.5 ) 11/28/2023 10 :48 AM EDT Body Mass Index 21.67 11/28/2023 10:48 AM EDT Plan of Treatment Health Maintenance Due Date Last Done Comments [facility]-Hepatitis C Screening 1950 [facility]-Medicare Annual Wellness (AWV) 1950 [facility]-Infant/Child/Adol SDOH Screenings 1950 [id number] Vaccine (#1) 1957 [facility]- SDOH Screenings 1970 [facility]-Adult SDOH Screenings 1970 [facility]-DTaP,Tdap,and Td Vaccine s (1 - Tdap) 12/21/1971 [facility]-Pneumococcal Vaccine: 50 + Years (1 of 2 - PCV) 12/21/1971 CT Colonography 1997 Colonoscopy 1997 FIT-DNA 1997 FIT 1997 FOBT 1997 Sigmoidoscopy 1997 [facility]-Colorectal Cancer Screening 1997 [facility]-Zoster Vaccines (1 of 2) 2002 [facility]-RSV Vaccine: 60+ Years o r (1 - Risk 60-74 years 1-dose series) 2012 [facility]-Abdominal Aortic Aneurys m (AAA) Screening 2017 [facility]-Depression Screening 11/27/2024 11/28/2023 [facility]-Influenza Vaccine (#1) 2025 07/30/2021 HPV Vaccines Aged Out No longer eligi ble based on patient's age to complete this topic [facility]-HIB Vaccines Aged Out No longer e ligible based on patient's age to complete this topic [facility]-Hepatitis A Vaccines Aged Out No longer eligible based on patient's age to complete this topic [facility]-IPV Vaccines Aged Out No longer e ligible based on patient's age to complete this topic [facility]-Rotavirus Vaccines Aged Out No lo nger eligible based on patient's age to complete this topic Insurance [facility] MEDICARE Care Teams Road Grader Relationship Specialty Start Date End Date Genevieve Shrestha APRN [facility] [place] [address] PCP - General 11/28/23
--- OUTSIDE RECORDS SUMMARY | 2025-02-25 11:25 | XMS_ITS | Referral Summary ---
Author Organization [employer] ([place], [place], [place], [place]) Address [address] [facility] [place] [address] Care Team Providers Care Corporate Development Analyst Name Role Phone Unavailable Primary Care Provider [...] Date Serafin rded Speak language other than Icelandic at home Not on file 05/24/2023 Want help with school or training Not on file 05/24/2023 Substance Use Answer Date Recorded Used prescription meds for non-medical reasons N ot on file 05/24/2023 Used illegal drugs past 12 months Not on file 05/24/2023 Sex and Gender Information Value Date Recorded Sex Assigned at Not on file 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
== END 2025-02-24 23:59 ==
LOC: LAB.DROPOF 02-25 11:10
PROVIDERS: PCP Family Medicine; Visit Provider Family Medicine
DX: M54.2 Cervicalgia (principal); E78.5 Hyperlipidemia, unspecified; E03.9 Hypothyroidism, unspecified; I10 Essential (primary) hypertension
CPT/HCPCS: 80053; 80061; 84443; 85025

== ENCOUNTER 2025-04-29 07:36 | Outpatient (CLI) | payer MEDICARE, SELFPAY ==
--- OUTSIDE RECORDS SUMMARY | 2025-04-29 07:39 | XMS_ITS | Referral Summary ---
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
--- OUTSIDE RECORDS SUMMARY | 2025-04-29 07:39 | XMS_ITS | Clinical Summary ---
Author Organization [facility] Address [address] [place] [address] Phone Care Team Providers Care Director Of Consumer Affairs Name Role Phone Kya Wallace Primary Care Provider [phone] Allergies No known active allergies Medications aspirin [...] knee Medical History Medical History Date Comments [place] (hard of hearing) Arthritis Hypertension Social History Tobacco Use Types Packs/Day Years Used Date Smoking Tobacco: Every Day Cigarettes 1.3 57.9 Started: 06/05/1967 Smokeless Tobacco: Never Tobacco Cessation:Ready [...] PPO MR HU[employer]NA MEDICARE PPO MR [id number] [id number] Care Teams Director Of Consumer Affairs Relationship Specialty Start Date End Date Kya Wallace [address] [facility] [address] [facility] [address] PCP - General Family Medicine 01/12/14
--- OUTSIDE RECORDS SUMMARY | 2025-04-29 07:39 | XMS_ITS | Clinical Summary ---
Author Organization [facility] Address [address] [place] [address] Care Team Providers Care Nuclear Security Officer Name Role Phone Genevieve Shrestha APRN Primary Care Provider [phone] Allergies No known active allergies Medications albuterol [...] (one) time each day. Active fish oil ([place]-3) 500 MG capsule Take 1 capsule (500 [...] Screening 1950 [facility]-Medicare Annual Wellness (AWV) 1950 [facility]-/Child/Adol SDOH Screenings 1950 [id number] Vaccine (#1) 06/22/1953 [facility]- SDOH Screenings 1970 [facility]-Adult SDOH Screenings 1970 [facility]-DTaP,Tdap,and Td Vaccine s (1 - Tdap) 12/21/1971 [facility]-Pneumococcal Vaccine: 50 + Years (1 of 2 - PCV) 12/21/1971 CT Colonography 1997 Colonoscopy 1997 FIT-DNA 1997 FIT 1997 FOBT 1997 Sigmoidoscopy 1997 [facility]-Colorectal Cancer Screening 1997 [facility]-RSV Vaccine: 60+ Years o r (1 - Risk 50-74 years 1-dose series) 2002 [facility]-Zoster Vaccines (1 of 2) 2002 [facility]-Abdominal Aortic Aneurys m (AAA) Screening 2017 [facility]-Depression Screening 11/27/2024 11/28/2023 [facility]-Influenza Vaccine (#1) 2025 07/30/2021 HPV Vaccines (No Doses Required) Completed [facility]-HIB Vaccines Aged Out No longer e [...] patient's age to complete this topic [place] [address] [place] [address] MEDICARE Care Teams Nuclear Security Officer Relationship Specialty Start Date End Date Genevieve Shrestha APRN [address] [place] [address] PCP - General 11/28/23
--- OUTSIDE RECORDS SUMMARY | 2025-04-29 07:39 | XMS_ITS | Clinical Summary ---
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
--- NOTE | 2025-04-29 10:15 | CT_ITS ---
FINAL REPORT CLINICAL HISTORY: lung cancer screening SMOKER, 1 PPD X 57 YEARS COMPARISON: None FINDINGS: CT CHEST LOW DOSE SCREENING HISTORY: Screening exam for lung cancer. 74-year-old male, current smoker, 34-ctsw-fswv history. DOSE: CTDI vol: 2.90 mGy, DLP: 118.03 mGy*cm TECHNIQUE: Axial CT without IV contrast administration using low dose protocol. This study was performed with techniques to keep radiation doses as low as reasonably achievable, (ALARA). Individualized dose reduction techniques using automated exposure control or adjustment of mA and/or kV according to the patient's size were employed. Moderate changes of emphysema are present. There is bronchial wall thickening in the lower lobes, greater on the right than the left. Several nodules are identified. There is a 3 mm right lower lobe nodule best seen on image #32 of series 4, and a second 3 mm right lower lobe nodule best seen on image #45 of series 4. There is a 3 mm left lower lobe nodule best seen on image #39, favor a perifissural node. There is an anterolateral right middle lobe bilobed nodule measuring up to 4 mm in size, best seen on image #44. No pleural or pericardial effusion is seen. No adenopathy or mass lesion is present. There is enlargement of the ascending aorta, measuring 45 mm in diameter. IMPRESSION: 1. Multiple 3 to 4 mm nodules as described above, favor granulomas. 2. Moderate changes of emphysema with bronchial wall thickening in the lower lobes, greater on the right. 3. Enlarged ascending aorta, measuring up to 45 mm in size. LUNG RADS CATEGORY 2S, the S designation for the enlarged ascending aorta. RECOMMENDATION: 12 month LDCT follow up Reviewed, Interpreted and Dictated by Maria G Shea MD Transcribed by Liz Haynes Authenticated and [facility]
== END 2025-04-29 23:59 | disposition home or self-care (01) ==
LOC: RT 07:37
PROVIDERS: PCP Family Medicine; Visit Provider Nurse Practitioner Family
DX: J44.9 Chronic obstructive pulmonary disease, unspecified (principal); R06.02 Shortness of breath; F17.210 Nicotine dependence, cigarettes, uncomplicated
CPT/HCPCS: 71271; 94618